=== PATIENT | female | born 1945 | race Caucasian/White ===

== ENCOUNTER → 2017-03-13 | Day surgery (SDC) | payer OTHER, BC ==
[~2017-03-13] MED LIST: ACETAMINOPHEN 325 MG TAB PO ONE; ASPIRIN 81 MG CHEWABLE TAB ONE; IOPAMIDOL (ISOVUE-370) 150 ML BTL IV ONE; LIDOCAINE 1% 300 MG/30 ML SDV ONE; MIDAZOLAM 2 MG/2 ML VIAL ONE; NITROGLYCERIN 0.4 MG BTL SL ONE; NS 1,000 ML IV ONE; fentaNYL 100 MCG/2 ML INJ ONE
[2017-03-13] MEDS: ASPIRIN 81 MG CHEWABLE TAB PO ONE (10:38)
--- NOTE | 2017-03-13 10:41 | CPEKG ---
Heart Rate: 76 RR Interval: 789 P-R Interval: 164 QRSD Interval: 82 QT Interval: 364 QTC Interval: 410 P [place]: -6 QRS [place]: -38 T Wave [place]: -18 EKG Severity - ABNORMAL ECG - EKG Impression: SINUS RHYTHM EKG Impression: LEFT AXIS DEVIATION EKG Impression: ABNORMAL T, CONSIDER ISCHEMIA, INFERIOR LEADS Electronically Signed By: Xu Nieto 13-Mar-2017 10:55:10
--- NOTE | 2017-03-13 10:43 | EDPHY ---
H & P Time Seen by Provider: 03/13/17 10:42 HPI/ROS: Chief complaint. Chest pain HPI. 71-year-old female presents with chest pain for approximately 20 minutes. She was feeling well this morning and during exercise she developed pressure- type mid chest discomfort. No radiation. No shortness of breath. Her pain continues. No previous similar symptoms. No unusual leg pain or swelling. Not sick including no fever cough. Unsure whether the pain is worse with exertion or not. It is not worse with breathing or movement. ROS Constitutional. no fever/chills, no weakness Eyes. no problems with vision ENT. no sore throat, no nasal drainage Cardiovascular. Chest pain Respiratory. no shortness of breath, no cough Abdominal. no abdominal pain, no nausea/vomiting, no diarrhea . no problems urinating MS. no calf pain/swelling, no neck/back pain, no joint pain Skin. no rash Lymph. no swollen glands Neuro. no headache, no dizziness, no difficulty walking or with speech Past Medical/Surgical History: Hypothyroid Mother is 92 and healthy; unknown father history Social History: , nonsmoker, no alcohol Smoking Status: Never smoked Physical Exam: General Appearance: Alert well-developed female moderate distress vital signs significant for blood pressure 158/119 Eyes: Pupils equal and round no pallor or injection. ENT, Mouth: Mucous membranes are moist. Respiratory: There are no retractions, lungs are clear to auscultation. Cardiovascular: Regular rate and rhythm. Gastrointestinal: Abdomen is soft and nontender, no masses, bowel sounds normal. Neurological: Awake and alert, sensory and motor exams grossly normal. Skin: Warm and dry, no rashes. Musculoskeletal: Neck is supple nontender. Extremities symmetrical, full range of motion. Psychiatric: Patient is oriented X 3, there is no agitation. Constitutional: Initial Vital Signs Temperature (C) 36.4 C 03/13/17 10:33 Heart Rate 85 03/13/17 10:33 Respiratory Rate 18 03/13/17 10:33 Blood Pressure 158/119 H 03/13/17 10:33 O2 Sat (%) 100 03/13/17 10:33 O2 Delivery Mode Nasal Cannula O2 (L/minute) 2 Allergies/Adverse Reactions: No Known Allergies Allergy (Verified 03/13/17 10:42) Home Medications: Medication Instructions Recorded Levothyroxine 100 mcg PO DAILY 10/24/15 Aspirin 81mg (*) 80 mg PO DAILY 07/18/16 Multi-Day Vitamins 1 tab PO DAILY 07/18/16 Vitamin D3 600 mg PO DAILY 07/18/16 Medical Decision Making - Diagnostics EKG Interpretation: EKG interpreted by me shows normal sinus rhythm with normal interval and left axis deviation. QRS is normal. However there are T-wave inversions consistent with ischemia in leads 3 and 4 as well as V3. No significant ST elevation or depression. No arrhythmia. The rate is 76 No previous EKGs for comparison Imaging Results: Imaging Impressions Chest X-Ray 03/13/17 10:51 Impression: Normal chest x-ray. One-view chest x-ray interpreted by me as nonacute Procedures: IV normal saline, monitor. Aspirin is given in the emergency department nitroglycerin is given sublingually. ED Course/Re-evaluation: Re-evaluation 10:56 a.m. patient has had some relief from the 1st nitroglycerin tablet but discomfort continues. 2nd nitroglycerin tablet is given. Diastolic blood pressure now 89 I consulted and discussed case with Dr. Marquis Kilgore, cardiology, who will see the patient in the emergency department at [facility]. He agrees with treatment and management so far. Re-evaluation again at 11:10 a.m. and after the 2nd nitroglycerin her discomfort is almost completely relieved. Diastolic blood pressure 81 The patient, her , and I discussed EKG findings, laboratory evaluations so far, treatment plan including need for emergent transfer to [facility] for further evaluation. They expressed understanding and agreement I called and consulted the emergency department at [facility] and notified them of patient's incoming status and planned to have Dr. Kilgore evaluate the patient in the ED re-eval again at 11:23--stable and improved Transferred to [facility] via [facility] ambulance Differential Diagnosis: This certainly sounds like ischemic chest pain. However it is not an ST elevation [place]. She has T-wave inversions in the inferior leads suggestive of inferior ischemia. Pain has been controlled using nitroglycerin. She is improved and stable. She has also been given aspirin. We have discussed the case with Interventional Cardiology who will evaluate the patient as soon as she arrives in the emergency department Critical Care Time: Critical care time exclusive procedures 40 minutes - Data Points Laboratory Results: Laboratory Results 03/13/17 10:40 03/13/17 10:40 03/13/17 03/13/17 10:40 10:40 WBC 4.57 10^3/uL 10^3/uL (3.80-9.50) RBC 4.38 10^6/uL 10^6/uL (4.18-5.33) Hgb 14.0 g/dL g/dL (12.6-16.3) Hct 41.3 % % (38.0-47.0) MCV 94.3 fL fL (81.5-99.8) MCH 32.0 pg pg (27.9-34.1) MCHC 33.9 g/dL g/dL (32.4-36.7) RDW 12.8 % % (11.5-15.2) Plt Count 301 10^3/uL 10^3/uL (150-400) MPV 9.9 fL fL (8.7-11.7) Neut % (Auto) 51.8 % % (39.3-74.2) Lymph % (Auto) 33.3 % % (15.0-45.0) [place] % (Auto) 10.1 % % (4.5-13.0) Eos % (Auto) 3.3 % % (0.6-7.6) Baso % (Auto) 1.3 % % (0.3-1.7) Nucleat RBC Rel Count 0.0 % % (0.0-0.2) Absolute Neuts (auto) 2.37 10^3/uL 10^3/uL (1.70-6.50) Absolute Lymphs (auto) 1.52 10^3/uL 10^3/uL (1.00-3.00) Absolute Monos (auto) 0.46 10^3/uL 10^3/uL (0.30-0.80) Absolute Eos (auto) 0.15 10^3/uL 10^3/uL (0.03-0.40) Absolute Basos (auto) 0.06 10^3/uL 10^3/uL (0.02-0.10) Absolute Nucleated RBC 0.00 10^3/uL 10^3/uL (0-0.01) Immature Gran % 0.2 % % (0.0-1.1) Immature Gran # 0.01 10^3/uL 10^3/uL (0.00-0.10) Platelet Estimate Pending Sodium 142 mEq/L mEq/L (134-144) Potassium 3.5 mEq/L mEq/L (3.5-5.2) Chloride 104 mEq/L mEq/L (97-110) Carbon Dioxide 21 mEq/l L mEq/l (22-31) Anion Gap 17 mEq/L H mEq/L (8-16) BUN 18 mg/dL mg/dL (7-23) Creatinine 0.8 mg/dL mg/dL (0.6-1.0) Estimated GFR > 60 Glucose 95 mg/dL mg/dL (70-100) Calcium 9.4 mg/dL mg/dL (8.5-10.4) Troponin I < 0.012 ng/mL ng/mL (0-0.034) NT-Pro-B Natriuret Pep 246 pg/mL H pg/mL (0-125) Medications Given: Discontinued Medications Aspirin (Aspirin) 324 mg PO EDNOW ONE Stop: 03/13/17 10:39 Last Admin: 03/13/17 10:38 Dose: 324 mg Sodium Chloride (Ns) 1,000 mls @ 0 mls/hr IV ONCE ONE PRN Reason: Wide Open Stop: 03/13/17 11:16 Last Admin: 03/13/17 10:50 Dose: 1,000 mls Nitroglycerin (Nitrostat) 0.4 mg SL EDNOW ONE Stop: 03/13/17 10:57 Last Admin: 03/13/17 10:53 Dose: 0.4 mg Nitroglycerin (Nitrostat) 0.4 mg SL EDNOW ONE Stop: 03/13/17 10:59 Last Admin: 03/13/17 10:58 Dose: 0.4 mg Departure - Departure Disposition: [facility] Inpatient Acute Clinical Impression: Chest pain Qualifiers: Chest pain type: chest pain due to myocardial ischemia Ischemic chest pain type : unspecified angina pectoris type Qualified Code(s): I20.9 - Angina pectoris, unspecified Condition: Good Instructions: Chest Pain (ED) Referrals: NONE *PRIMARY CARE P,. [Primary Care Provider] - As per Instructions
[2017-03-13 11:07] LABS: ANION GAP 17 mEq/L (8-16); CALCIUM 9.4 mg/dL (8.5-10.4); CARBON DIOXIDE 21 mEq/l (22-31); CHLORIDE 104 mEq/L (97-110); CREATININE 0.8 mg/dL (0.6-1.0); GLOMERULAR FILTRATION RATE > 60; GLUCOSE 95 mg/dL (70-100); POTASSIUM 3.5 mEq/L (3.5-5.2); SODIUM 142 mEq/L (134-144)
[2017-03-13 11:21] LABS: TROPONIN I < 0.012 ng/mL (0-0.034)
[2017-03-13 11:24] VITALS: RESP 16
[2017-03-13 11:25] LABS: HEMATOCRIT 41.3 % (38.0-47.0); MEAN CELL HEMOGLOBIN CONCENTR. 33.9 g/dL (32.4-36.7); MEAN CELL VOLUME 94.3 fL (81.5-99.8); RED BLOOD CELL COUNT 4.38 10^6/uL (4.18-5.33); RED CELL DISTRIBUTION WIDTH 12.8 % (11.5-15.2)
[2017-03-13 11:26] LABS: MEAN PLATELET VOLUME 9.9 fL (8.7-11.7); PLATELET COUNT 301 10^3/uL (150-400)
[2017-03-13 11:27] LABS: % IMMATURE GRANULYOCYTES 0.2 % (0.0-1.1); ABSOLUTE IMMATURE GRANULOCYTES 0.01 10^3/uL (0.00-0.10); ADD DIFF? NO
[2017-03-13 11:28] LABS: ADD MORPH? YES
[2017-03-13 12:11] VITALS: TEMP 98.1
[2017-03-13 12:33] LABS: PLATELET ESTIMATE ADEQUATE (ADEQ)
[2017-03-13 12:34] LABS: MACROCYTES 1+
[2017-03-13 13:51] VITALS: BP 136/81; PULSE 63; O2SAT 98
--- NOTE | 2017-03-13 15:10 | GCON ---
[f rep st] CONSULTATION DATE OF CONSULTATION: 03/13/2017 CHIEF COMPLAINT: We have been asked by Dr. Nieto to evaluate the patient with a chief complaint o f chest pain. HISTORY OF PRESENT ILLNESS: The patient is a 71-year-old female with risk factors including age, jennifer rderline hyperlipidemia, and family history who presents with a chief complaint of chest pain. The patient was in her usual state of health until the day of admission, when she decided to do an exerc ise routine. In the midst of doing her exercise, she began to experience chest pain. The chest blanca n was described as a pressure in the center of her chest without radiation. The chest pain was not associated with nausea, vomiting, or diaphoresis. The chest discomfort continued and became quite u ncomfortable, prompting her to seek further evaluation at the urgent care center. Her initial EKG d emonstrated T-wave inversions in III and aVF. Her initial troponin was within normal limits. We baca ve been consulted to help in the further management of this patient. The patient denies a previous history of chest pain. She remains moderately active, exercising on a regular basis. There is no h istory of palpitations, orthopnea, or PND. PAST MEDICAL HISTORY: 1. Hypothyroidism. 2. Borderline hyperlipidemia. MEDICATIONS: Please see medicine reconciliation form. ALLERGIES: No known drug allergies. SOCIAL HISTORY: The patient lives in [place] with her . She does not smoke. She denies p roblems with alcohol. FAMILY HISTORY: Notable for coronary artery disease on the father's side of the family. REVIEW OF SYSTEMS: 10-point review of systems is negative, except as noted in HPI. PHYSICAL EXAMINATION: GENERAL: Patient is resting comfortably in bed at this time. She does not a ppear to be in acute distress. VITALS: Temperature is afebrile. Pulse is 63, blood pressure 136/8 1, respiratory rate is 16, SaO2 is 98% on room air. HEENT: Normocephalic, atraumatic. Extraocular muscles intact. NECK: No JVD. No bruits. LUNGS: Clear to auscultation bilaterally. CARDIOVASC ULAR: Regular rate and rhythm S1, S2. Grade 2/6 decrescendo murmur is noted at the left sternal jennifer rder. ABDOMEN: Soft, nontender. Normoactive bowel sounds. No hepatosplenomegaly noted. EXTREMIT IES: No clubbing, cyanosis, or edema. SKIN: No evidence of rash. NEURO: Patient is awake, alert , and oriented x3. LABORATORY: White blood cell count is 4.57, hemoglobin 14.0, hematocrit 41.3, platelet count 301. Sodium 142, potassium 3.5, chloride 104, CO2 21, BUN 18, creatinine 0.8. Troponin within normal dong its x1. EKG demonstrates sinus rhythm, leftward axis, normal intervals, T-wave inversions in leads III, AVF, and V3. ASSESSMENT AND PLAN: The patient is a 71-year-old female with multiple cardiac risk factors who pre sents with an acute coronary syndrome. Her EKG demonstrates T-wave inversions in the inferior leads . Her initial troponin is within normal limits. Reviewed options for risk stratification with the patient and her including an early invasiv e strategy as well as a conservative strategy. Patient and her would like this pursue an ea rly invasive strategy at this time. Risks and benefits of cardiac catheterization discussed. Will arrange to have this performed. /[id number]/MODL
--- NOTE | 2017-03-13 17:06 | CPIP ---
[f rep st] INVASIVE CARDIAC PROCEDURE DATE OF PROCEDURE: 03/13/2017 PROCEDURE: 1. Coronary angiography. 2. Left ventriculography. INDICATION: Acute coronary syndrome with EKG changes and normal troponins. ACCESS: Patient was prepped and draped in sterile fashion. 1% lidocaine was used to anesthetize th e right inguinal region. A 6-[place] introducer sheath was placed selectively into the right common femoral artery via modified Seldinger technique. CORONARY ANGIOGRAPHY: A 6-[place] JL4 was advanced to the left main coronary artery and images obtai dhruv. The left main coronary artery bifurcated into an LAD and circumflex coronary arteries. The le ft main coronary artery was short and appeared normal. The left anterior descending coronary artery gave rise to 1 prominent diagonal branch. The left anterior descending coronary artery and its moira gonal branch appeared normal. The circumflex coronary artery was a large vessel, but was nondominan t. Circumflex coronary artery gave rise to 4 OM branches. The circumflex coronary artery and its c omplement of OM branches appeared normal. A 6-[place] JR4 was advanced to the right coronary artery and images obtained. The right coronary artery is dominant. The right coronary artery appeared nor mal. LEFT VENTRICULOGRAPHY: A 6-[place] pigtail catheter was advanced in the left ventricle and images ob tained. Left ventricle was normal in size and had normal systolic function with an estimated ejecti on fraction of 60%. COMPLICATIONS: None. CONCLUSIONS: 1. Normal coronary arteries. 2. Normal left ventricular size and systolic function. /[id number]/MODL
--- NOTE | 2017-03-13 17:11 | ECHO ---
[id number] + + [address] : : [place] [address] : : [phone] + Adult Echocardiographic Report + ----+ :Name: TOÑO STOCK Al Date: 03/13/2017 12:57 PM : : Hospital Admission Number: [id number] Location : ER: :: 1945 Gender: Female : :Age: 71 yrs Race: WH : :Reason For Study: Chest Pain : + ----+ MMode/2D Measurements \T\ Calculations IVSd: 0.41 cm LVIDd: 4.1 cm FS: 43.7 % Ao root diam: LVPWd: 0.69 cm LVIDs: 2.3 cm EDV(Teich): 2.9 cm 74.2 ml LA dimension: ESV(Teich): 3.2 cm 18.3 ml EF(Teich): 75.3 % LVLd ap4: 6.9 cm SV(MOD-sp4): EDV(MOD-sp4): 48.0 ml 62.0 ml LVLs ap4: 5.0 cm ESV(MOD-sp4): 14.0 ml EF(MOD-sp4): 77.4 % Normal Measurement Values: + + :LVIDd (3.5-5.7cm) IVSd (0.6-1.1cm) LVPWd (0.6-1.1cm) Aortic Root (2.0-3.7cm)Left Atrium (1.5-4.0cm): :LV Vol(d) (76-115ml) LV Vol(s) (29-48ml) Ejec Fraction (50-65%)PV Khanh (0.6- 1.2m/s) TV Khanh (0.4-1.0m/s) : :MV E Khanh (0.8-1.0m/s)MV A Khanh (0.3-1.0m/s)LVOT Khanh (0.7-1.2m/s) Asc Ao Khanh ( 0.9-1.8m/s) : + + Doppler Measurements \T\ Calculations MV E max khanh: 60.7 cm/secAo V2 max: 155.0 cm/sec AI max khanh: 464.0 cm/sec MV A max khanh: 84.4 cm/secAo max P.6 mmHg AI max P.1 mmHg MV E/A: 0.72 AI dec slope: 203.0 cm/sec2 AI P1/2t: 669.5 msec Left Ventricle The left ventricle is normal in size. There is normal left ventricular wall thickness. Left ventricular systolic function is normal. Ejection Fraction = 65-70%. No regional wall motion abnormalities noted. Right Ventricle The right ventricle is normal in size and function. Atria The left atrium is mildly dilated. Right atrial size is normal. Chiari network (normal variant) is noted. Mitral Valve The mitral valve is normal in structure and function. There is no evidence of mitral valve prolapse. There is no mitral valve stenosis. There is mild mitral regurgitation. Tricuspid Valve Normal tricuspid valve. There is trace tricuspid regurgitation. Aortic Valve The aortic valve is not well visualized. There is no aortic stenosis. Mild aortic regurgitation. Pulmonic Valve The pulmonic valve is not well visualized. Great Vessels The aortic root is normal size. Pericardium/Pleural There is no pericardial effusion. Conclusion A complete two-dimensional transthoracic echocardiogram was performed (2D, M-mode, Doppler and color flow Doppler). 1. The left ventricle is normal in size. There is normal left ventricular wall thickness. Ejection Fraction = 65-70%. No regional wall motion abnormalities noted. 2. The mitral valve is normal in structure and function. There is mild mitral regurgitation. 3. The aortic valve is not well visualized. There is no aortic stenosis. Mild aortic regurgitation. 4. There is no pericardial effusion. 5. No old studies for comparison. Final Reading Physician: Alejandro Adams MD electronically signed on 03/13/2017 05:10 PM Ordering Physician: KECIA VO Performed By: Tata Gómez RDCS
== END | disposition home or self-care (01) ==
LOC: CED 10:33 → FCATH 15:19
PROVIDERS: ATTEND Internal Medicine Cardiovascular Disease
PROC: 4A020N7 Measurement of Cardiac Sampling and Pressure, Left Heart, Open Approach (ICD-10-PCS; principal; 2017-03-13)
PROC: B2151ZZ Fluoroscopy of Left Heart using Low Osmolar Contrast (ICD-10-PCS; principal; 2017-03-13)
PROC: B2111ZZ Fluoroscopy of Multiple Coronary Arteries using Low Osmolar Contrast (ICD-10-PCS; principal; 2017-03-13)
DX: R94.31 Abnormal electrocardiogram [ECG] [EKG] (principal); R07.9 Chest pain, unspecified; E78.5 Hyperlipidemia, unspecified
CPT/HCPCS: 71010; 93005; 93306; 93458; 99291; C1760; J1644; J2250; J3010; Q9967; 80048-PO; 83880-PO; 84484-PO; 85025-PO

== ENCOUNTER → 2017-03-27 | Outpatient (CLI) | payer OTHER, BC | LOC: BHFA 13:15 | PROVIDERS: ATTEND Internal Medicine Cardiovascular Disease | DX: R07.9 Chest pain, unspecified (principal) ==

== ENCOUNTER → 2017-08-01 | Outpatient (CLI) | payer OTHER, BC | LOC: CIMAGING 10:05 | PROVIDERS: ATTEND Internal Medicine | DX: Z12.31 Encounter for screening mammogram for malignant neoplasm of breast (principal) | CPT/HCPCS: G0202 ==

== ENCOUNTER → 2017-11-02 | Outpatient (CLI) | payer OTHER, BC | LOC: BMCIMAGING 10:02 | PROVIDERS: ATTEND Internal Medicine Endocrinology, Diabetes & Metabolism | DX: Z13.820 Encounter for screening for osteoporosis (principal); M81.0 Age-related osteoporosis without current pathological fracture ==